=== PATIENT | male | born 1960 ===

== ENCOUNTER 2021-07-22 12:31 | Emergency (ER) | payer SELFPAY ==
[2021-07-22] MEDS ORDERED: dexAMETHasone 20 MG/5 ML VIAL IM ONE (13:03)
[2021-07-22] MEDS ORDERED: KETOROLAC 60 MG/2 ML INJ IM ONE (13:03)
[2021-07-22 13:08] VITALS: BP 139/91
--- NOTE | 2021-07-22 13:14 | Emergency Department Report ---
ED Extremity Problem HPI - General Chief complaint: Extremity Problem,Nontraumatic Stated complaint: PAIN IN LEFT LEG Time Seen by Provider: 07/22/21 12:53 Source: patient Mode of arrival: Ambulatory Limitations: No Limitations - History of Present Illness Initial comments: 61-year-old male with a past medical history of prostate cancer status post pros tatectomy with subsequent treatment with chemotherapy 1 to 2 years ago due to rising PSA presents to the hospital complaining of lower back pain and left leg pain for the last 3 days. Patient thinks is because he has been sleeping on a couch the last several nights. Pain was worse upon waking up this a.m. Described as a burning and ""muscle" sensation with some mild lower back discomfort. No urinary or fecal incontinence noted. Patient denies fever, dysuria, or trauma. Pain radiates from left buttock to left lateral thigh and knee. Patient took a unknown antibiotic yesterday due to pain thinking that it might be due to an infection. Patient has not taken any pain medication Severity scale (0 -10): 7 - Related Data Previous Rx's Medication Instructions Recorded Last Taken Type Gabapentin 300 mg PO Q8HR #30 capsule 07/22/21 Unknown Rx Ibuprofen [Motrin] 600 mg PO Q8H PRN #20 tablet 07/22/21 Unknown Rx Allergies Allergy/AdvReac Type Severity Reaction Status Date / Time No Known Allergies Allergy Unverified 07/22/21 12:47 ED Review of Systems ROS: Stated complaint: PAIN IN LEFT LEG Other details as noted in HPI Comment: All other systems reviewed and negative ED Past Medical Hx - Past Medical History Hx of Cancer: Yes (Prostate cancer, chemotherapy) - Surgical History Additional Surgical History: Prostatectomy - Medications Home Medications: Home Medications Medication Instructions Recorded Confirmed Last Taken Type Gabapentin 300 mg PO Q8HR #30 capsule 07/22/21 Unknown Rx Ibuprofen [Motrin] 600 mg PO Q8H PRN #20 tablet 07/22/21 Unknown Rx ED Physical Exam - General Limitations: No Limitations - Other Other exam information: General: No acute distress Head: Atraumatic Eyes: normal appearance ENT: Moist mucous membranes Neck: Normal appearance, no midline tenderness Chest: Clear to auscultation bilaterally CV: Regular rate and rhythm Abdomen: Soft, normal bowel sounds, nontender, nondistended, no rebound or guar ding Back: Normal inspection Extremity: Normal inspection, full range of motion, no erythema, warmth, or edema 2+ left DP pulse. Full range of motion. Left leg nontender to palpation Neuro: Alert O x 3, no facial asymmetry, speech clear, no gross motor sensory deficit Psych: Appropriate behavior Skin: No rash ED Course Vital Signs 07/22/21 07/22/21 12:54 13:06 Temperature 98.1 F 98.5 F Pulse Rate 86 66 Respiratory 16 18 Rate Blood Pressure 139/89 139/91 [Right] O2 Sat by Pulse 99 99 Oximetry ED Medical Decision Making - Radiology Data Radiology results: report reviewed LUMBAR SPINE 3 VIEWS INDICATION / CLINICAL INFORMATION: lower back pain left thigh pain, hx of prostate ca. COMPARISON: None available. FINDINGS: VERTEBRAE: No acute fracture. No significant malalignment. No osseous lesion identified. DISC SPACES / FACET JOINTS:Mild degenerative change. PARASPINAL SOFT TISSUES:No significant abnormality. ADDITIONAL FINDINGS: None. - Medical Decision Making 61-year-old male with nontraumatic lower back and left leg pain. Symptoms suggestive of sciatica. X-ray obtained given history of prostate cancer. X-ray unremarkable for acute findings. Mild degenerative changes noted. patient treated with Decadron and Toradol in the ED. Will be treated with NSAIDs, and gabapentin. PMD follow-up advised Critical Care Time: No Critical care attestation.: If time is entered above; I have spent that time in minutes in the direct care of this critically ill patient, excluding procedure time. ED Disposition Clinical Impression: Sciatica Disposition: HOME / SELF CARE / HOMELESS Is pt being admited?: No Does the pt Need Aspirin: No Condition: Stable Instructions: Radicular Pain, Acute Back Pain, Adult Additional Instructions: Take the medication as prescribed. Follow-up with your doctor or doctor/clinic provided. Return if symptoms worsen as indicated by your discharge instructions. Prescriptions: Gabapentin 300 mg PO Q8HR #30 capsule Ibuprofen [Motrin] 600 mg PO Q8H PRN #20 tablet PRN Reason: Pain Referrals: NIKUNJ GUNDERSON MD [Staff Physician] - 3-5 Days your, pmd [Other] - 3-5 Days Time of Disposition: 13:48
--- NOTE | 2021-07-22 13:42 | XRay Report ---
LUMBAR SPINE 3 VIEWS INDICATION / CLINICAL INFORMATION: lower back pain left thigh pain, hx of prostate ca. COMPARISON: None available. FINDINGS: VERTEBRAE: No acute fracture. No significant malalignment. No osseous lesion identified. DISC SPACES / FACET JOINTS:Mild degenerative change. PARASPINAL SOFT TISSUES:No significant abnormality. ADDITIONAL FINDINGS: None. Signer Name: Bar Zuniga MD Signed: 07/22/2021 1:37 PM Workstation Name: [id number]
== END 2021-07-22 14:05 | disposition home or self-care (01) ==
LOC: ED 12:31
DX: M54.30 Sciatica, unspecified side (principal); Z85.46 Personal history of malignant neoplasm of prostate
CPT/HCPCS: 72100; 96372; 99283; J1100; J1885